=== PATIENT | female | born 1955 | race Caucasian/White ===

== ENCOUNTER 2021-06-09 16:41 | Emergency (ER) | payer MEDICARE, OTHER ==
[~2021-06-09 16:41] MED LIST: Iopamidol 370 76% 100 ML VIAL ONE
[2021-06-09 17:18] LABS: #Basophils 0.2 thou/uL (0.0-0.2); #Lymphocytes 1.3 thou/uL (1.20-3.40); #Monocytes 0.6 thou/uL (0.11-0.59); #Neutrophils 12.3 thou/uL (1.40-6.50); %Basophils 1.5 % (0.0-1.0); %Eosinophils 0.1 % (0.0-10.0); %Monocytes 3.8 % (0.0-10.0); %Neutrophils 85.5 % (42.0-75.0); Hemoglobin 11.7 g/dL (12.0-16.0); Mean Corpuscular HGB CONC 32.1 g/dL (32.0-36.0); Mean Corpuscular Hemoglobin 26.7 pg (27.0-31.0); Mean Platelet Volume 7.1 fL (7.4-10.4); Platelet Count 480 thou/uL (130-400); RBC Distribution Width 13.2 % (11.5-14.5); Red Blood Cell (RBC) Count 4.39 mill/uL (4.20-5.40); White Blood Cell (WBC) Count 14.4 thou/uL (4.8-10.8)
[2021-06-09] MEDS ORDERED: Morphine 4 MG/ML VIAL ONE (17:25)
[2021-06-09] MEDS ORDERED: Ondansetron PF 4 MG/2 ML Vial ONE (17:26)
[2021-06-09] MEDS ORDERED: Sodium Chloride 0.9% 1,000 ML ONE ×2 (17:26→22:50)
[2021-06-09 17:55] LABS: Anion Gap 14 mmol/L (10-20); BUN (Urea Nitrogen) 11 mg/dL (9.8-20.1); Bilirubin, Total 0.6 mg/dL (0.2-1.2); Calc. Creatinine Clearance 0 mL/min (70-130); Calcium 9.7 mg/dL (7.8-10.44); Carbon Dioxide 25 mmol/L (23-31); Chloride 99 mmol/L (98-107); Glucose 97 mg/dL (80-115); Potassium 4.6 mmol/L (3.5-5.1); Sodium 133 mmol/L (136-145)
[2021-06-09 17:56] LABS: ALT (SGPT) 78 U/L (8-55); AST (SGOT) 59 U/L (5-34); Albumin 3.5 g/dL (3.4-4.8); Alkaline Phosphatase 190 U/L (40-110); Globulin 4.4 g/dL (2.4-3.5); Magnesium 1.9 mg/dL (1.6-2.6); Protein, Total 7.9 g/dL (5.8-8.1)
[2021-06-09] MEDS ORDERED: cefTRIAXone\\ROCEPHIN 2 GM VIAL ONE (20:58)
[2021-06-09] MEDS ORDERED: Sodium Chloride 0.9% 100 ML ONE (20:58)
[2021-06-09] MEDS ORDERED: Sodium Chloride 0.9% 250 ML 250 ML ONE (21:16)
[2021-06-09] MEDS ORDERED: Azithromycin 500 MG VIAL ONE (21:16)
[2021-06-09] MEDS ORDERED: Dexamethasone 4 mg/ml Vial ONE (21:23)
[2021-06-09 21:41] LABS: SARS-CoV-2 NAA Rapid Test Not Detected (NotDetected)
== END 2021-06-10 01:10 | disposition short-term general hospital (02) ==
LOC: NAV ERS 16:41
DX: J18.9 Pneumonia, unspecified organism (principal); R07.89 Other chest pain; R09.02 Hypoxemia; J42 Unspecified chronic bronchitis; Z20.822 Contact with and (suspected) exposure to COVID-19
CPT/HCPCS: 36415; 71045; 71275; 80053; 83605; 83735; 83880; 84484; 85025; 85379; 87040; 93005; 94760; 96365; 96375; J0456; J0696; J1100; J2270; J2405; J3490; J7050; J7620; Q9967; U0002

== ENCOUNTER 2022-08-01 21:45 | Emergency (ER) | payer MEDICARE, OTHER ==
[2022-08-01] MEDS ORDERED: traMADol HCl 50 MG TAB ONE (22:28)
[2022-08-01] MEDS ORDERED: Ibuprofen 200 MG TAB ONE (22:29)
== END 2022-08-01 23:25 | disposition home or self-care (01) ==
LOC: NAV ERS 21:45
DX: S90.31XA Contusion of right foot, initial encounter (principal); W20.8XXA Other cause of strike by thrown, projected or falling object, initial encounter; Z87.891 Personal history of nicotine dependence